=== PATIENT | female | born 1945 | race Caucasian/White ===

== ENCOUNTER 2018-07-29 18:19 | Emergency (ER) | payer MEDICARE ==
[~2018-07-29] VITALS: Ht 152.4 cm; Wt 67.6 kg
--- NOTE | 2018-07-29 18:45 | NUR ---
patient came in to the ER c/o generalized weakness, on room air, breathing evenly and unlabroed. connected tot he monitor and puls eox. denies any pain at this time. kept comfortable. will continue to monitor accordingly.
--- NOTE | 2018-07-29 18:59 | NUR ---
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
[2018-07-29] MEDS ORDERED: IV NS 0.9% 1,000 ML BAG IV ONE (19:00)
[2018-07-29 19:01] LABS: BASOPHILS % (AUTO) 0.1 % (0.0-2.0); EOSINOPHILS % (AUTO) 0.1 % (0.0-6.0); HEMATOCRIT 42 % (33-45); LYMPHOCYTES # (AUTO) 0.3 /CMM (0.8-4.8); LYMPHOCYTES % (AUTO) 6.4 % (20.0-44.0); MEAN CORPUSCULAR HGB CONC 36 g/dl (31.0-36.0); MEAN CORPUSCULAR VOLUME 98 fL (82-100); MONOCYTES # (AUTO) 0.4 /CMM (0.1-1.30); MONOCYTES % (AUTO) 7.3 % (2.0-12.0); NEUTROPHILS # (AUTO) 4.3 /CMM (1.8-8.9); NEUTROPHILS % (AUTO) 86.1 % (43.0-81.0); PLATELET COUNT (AUTO) 89 /CMM (150-450); RED BLOOD CELL COUNT(AUTO) 4.25 MIL/uL (4.0-5.2)
[2018-07-29 19:08] LABS: CALCIUM, SERUM 8.7 mg/dL (8.5-10.1); CARBON DIOXIDE 25 mmol/L (21-32); CHLORIDE 102 mmol/L (98-107); CREATININE 0.8 mg/dL (0.6-1.3); GLUCOSE 190 mg/dL (74-106); SODIUM SERUM 136 mmol/L (136-145); UREA NITROGEN, BLOOD 12 mg/dL (7-18)
[2018-07-29 19:14] LABS: ALANINE AMINOTRANSFERASE 72 U/L (12-78); ALBUMIN 2.8 g/dL (3.4-5.0); ALKALINE PHOSPHATASE 308 U/L (46-116); ASPARTATE AMINOTRANSFERASE 121 U/L (15-37); BILIRUBIN,DIRECT 1.7 mg/dL (0.0-0.2); BILIRUBIN,TOTAL 3.4 mg/dL (0.2-1.0)
--- NOTE | 2018-07-29 19:29 | NUR ---
endorsed to Marilynn FOWLER for haseeb.
[2018-07-29] MEDS ORDERED: PIPERACILLIN /TAZOBACTAM 3.375 G in IV D5W 50 ML IV ONE (19:30)
[2018-07-29 19:41] LABS: EOSINOPHILS % (MANUAL) 2 % (0-4); LYMPHOCYTES % (MANUAL) 9 % (16-48); MONOCYTES % (MANUAL) 8 % (0-11.0); NEUTROPHILS % (MANUAL) 81 (42-76)
[2018-07-29 20:03] LABS: APPEARANCE,URINE Slightly Cloudy (CLEAR); BILIRUBIN,URINE Negative (NEGATIVE); BLOOD, URINE Trace-intact Ery/uL (NEGATIVE); COLOR,URINE Light yellow (YELLOW); KETONES,URINE Negative (NEGATIVE); LEUKOCYTE ESTERASE ,URINE Negative (NEGATIVE); NITRITE, URINE Negative (NEGATIVE); PROTEIN,URINE Negative (NEGATIVE); UGLUCOSE Negative (NEGATIVE); UROBILINOGEN,URINE 0.2 EU/dL (0.2)
--- NOTE | 2018-07-29 20:07 | NUR ---
BLOOD CX & LACTIC ACID DRAWN, URINE COLLECTED & SENT TO LAB. MEDICATED W/ ABX IVPB PER ERMD ORDER, PT ELEN WELL. WILL CONT TO MONITOR.
[2018-07-29 20:15] LABS: BACTERIA,URINE None seen /HPF (None Seen); SQUAMOUS EPITHELIAL CELL,UR Few /HPF (None Seen); WBC,URINE 0-2 /HPF (0-3)
--- NOTE | 2018-07-29 20:33 | NUR ---
MS 307-2
[2018-07-29] MEDS ORDERED: IBUPROFEN 600 MG TABLET PO PRN (21:00)
[2018-07-29] MEDS ORDERED: IBUPROFEN 600 MG TABLET PO ONE (22:29)
[2018-07-29] MEDS ORDERED: POTASSIUM CHLORIDE 20 MEQ TAB.PRT.SR PO ONE ×2 (22:29→22:30)
--- NOTE | 2018-07-29 22:36 | NUR ---
Patient discharged to home in stable condition. Written and verbal after care instructions given. Patient verbalizes understanding of instruction. IV removed. Catheter intact and site benign. Pressure and 4x4 applied to site. No bleeding noted.
[2018-07-29 22:37] VITALS: BP 132/80
== END 2018-07-29 22:38 | disposition home or self-care (01) ==
LOC: ER 18:22 → UNDOADMIN 20:43 → MED 20:43
DX: R10.11 Right upper quadrant pain (principal); R10.12 Left upper quadrant pain; K74.60 Unspecified cirrhosis of liver; I10 Essential (primary) hypertension; E11.9 Type 2 diabetes mellitus without complications; F03.90 Unspecified dementia, unspecified severity, without behavioral disturbance, psychotic disturbance, mood disturbance, and anxiety; Z90.710 Acquired absence of both cervix and uterus
CPT/HCPCS: 36415; 71045-TC; 76700-TC; 80048-TC; 80076-TC; 81000-TC; 83605-TC; 83690-TC; 85025-TC; 85730-TC; 87040-TC; 87086-TC; 87186-TC; G0378; J2543; J7060